=== PATIENT | male | born 1955 | race Caucasian/White ===

== ENCOUNTER 2018-07-16 22:45 | Emergency (ER) | payer MEDICARE, MEDICAID ==
[~2018-07-16] VITALS: Ht 177.8 cm; Wt 65.0 kg
--- NOTE | 2018-07-16 22:49 | NUR ---
no answer when called for triage.
[2018-07-16 22:50] VITALS: BP 124/68
== END 2018-07-16 23:49 | disposition home or self-care (01) ==
LOC: ED 23:20
DX: Z43.6 Encounter for attention to other artificial openings of urinary tract (principal); Z48.01 Encounter for change or removal of surgical wound dressing; Z72.9 Problem related to lifestyle, unspecified; Z59.0 Homelessness; Z87.891 Personal history of nicotine dependence; Z85.46 Personal history of malignant neoplasm of prostate
CPT/HCPCS: 99282